=== PATIENT | female | born 1990 | race Caucasian/White ===

== ENCOUNTER 2023-08-17 17:48 | Emergency (ER) | payer OTHER, SELFPAY ==
[2023-08-17] VITALS (15 sets, daily range): BP systolic 112–143; BP diastolic 72–92; PULSE 60–82; RESP 21; TEMP 36.9; O2SAT 97–100; BMI 31.2
--- NOTE | 2023-08-17 18:00 | ED.GENADULT ---
HPI - General Adult General Chief complaint: Abdominal Pain Stated complaint: Persistent Stomach pain Time Seen by Provider: 08/17/23 17:51 History of Present Illness HPI narrative: Persistent right upper quadrant pain since wednesday pain. Worsens when she eats and drinks. Has had 4 bowel movements today . Pt has nausea 33 year old woman presenting to the ER with concern of abdominal pain. Has gotten particularly intense over the last day and half. About 10 days ago noted a rash that appeared on the palmar surface of her hands bilaterally. She has pictures demonstrating cafe colored well-demarcated blotches of varying sizes appearing over palmar surface of fingers and palms. She swears there was nothing that she encounter that would have caused this. This lasted about 3 days. Currently she blames discoloration on her thumbs on marker. And then over the last 10 days began to have escalating abdominal pain. Sharp crampy. No diarrhea. She is just quite gassy. She has tried Tums and pantoprazole. Does have a history of laryngeal reflux she says. Pain is markedly exacerbated when she eats or drinks anything. She has had a number of bowel movements today which were non diarrheal. She is nauseated. Pain she thinks is more in the right upper abdomen. Again pain has been colicky in some way but has been persistent as she gestures across the mid abdomen. She has not had a fever. She does note a history of stomach problems and notes an allergy to lactose and gluten but does not know of any exposures that she may have had recently. No vomiting. She notes her mother having had her gallbladder out as well as Juan's disease. Also that her father had biliary cancer. Related Data Allergies Allergy/AdvReac Type Severity Reaction Status Date / Time No Known Drug Allergies Allergy Verified 08/17/23 17:58 Review of Systems Status of ROS: Reports: 6 or more systems reviewed and unremarkable except as noted in History and below PFSH PFS Social History Smoking Status: Never smoker How often do you have a drink containing alcohol: never How often do you have six or more drinks on one occasion: Never AUDIT-C Alcohol total score: 0 Non-prescribed substance use: denies use Exam Narrative: Exam Narrative: Pleasant. Of good energy. Skin is warm and dry. There is a freckle cafe colored macule but any 7 in in the palm of her right hand between her index and thumb. Nothing else similar to pictures that were shown are noted. Skin is warm and dry otherwise without rash. Lungs are clear. She is a little sore to percussion of the right flank. Heart is in a regular rate and rhythm. Has a mid systolic murmur. Oropharynx with some irregular erythema in a suggestion of a you were 1 mm so blister in the soft palate. She does not have cervical lymphadenopathy. Abdomen seems diffusely full. She is diffusely tender more so though in the epigastrium and right upper quadrant but is negative Weinberg's. Const: Vital Signs, click to edit/add: Vital Signs - 24 hr 08/17/23 17:53 08/17/23 19:30 08/17/23 19:44 Temperature 98.4 F Pulse Rate 62 Pulse Rate [Right Pulse Oximeter] 82 61 Respiratory Rate 21 Blood Pressure Blood Pressure [Ri ght Upper Arm] 143/92 H 120/91 H Pulse Oximetry 98 98 99 Oxygen Delivery Me thod Room Air Room Air 08/17/23 19:45 08/17/23 20:00 08/17/23 20:02 Temperature Pulse Rate 63 63 63 Pulse Rate [Right Pulse Oximeter] Respiratory Rate Blood Pressure 112/72 Blood Pressure [Ri ght Upper Arm] Pulse Oximetry 98 100 99 Oxygen Delivery Me thod 08/17/23 20:15 08/17/23 20:30 08/17/23 20:45 Temperature Pulse Rate 60 73 73 Pulse Rate [Right Pulse Oximeter] Respiratory Rate Blood Pressure Blood Pressure [Ri ght Upper Arm] Pulse Oximetry 98 100 99 Oxygen Delivery Me thod 08/17/23 21:00 08/17/23 21:02 08/17/23 21:03 Temperature Pulse Rate 81 72 73 Pulse Rate [Right Pulse Oximeter] Respiratory Rate Blood Pressure 122/80 Blood Pressure [Ri ght Upper Arm] Pulse Oximetry 97 98 97 Oxygen Delivery Me thod 08/17/23 21:21 08/17/23 21:30 08/17/23 21:45 Temperature Pulse Rate 78 64 65 Pulse Rate [Right Pulse Oximeter] Respiratory Rate Blood Pressure Blood Pressure [Ri ght Upper Arm] Pulse Oximetry 97 99 99 Oxygen Delivery Me thod Documenting provider has reviewed patient's vital signs: yes Course Vital Signs Vital signs: Initial Vital Signs Temperature 98.4 F 08/17/23 17:53 Temperature Source Temporal Artery Scan 08/17/23 17:53 Pulse Rate 82 08/17/23 17:53 Pulse Rhythm Regular 08/17/23 17:53 Pulse Strength 3+ Normal 08/17/23 17:53 Respiratory Rate 21 08/17/23 17:53 Blood Pressure 143/92 H 08/17/23 17:53 Blood Pressure Mean 109 H 08/17/23 17:53 Blood Pressure Position Sitting 08/17/23 17:53 Pulse Oximetry 98 08/17/23 17:53 Oxygen Delivery Method Room Air 08/17/23 17:53 Vital Signs Temperature 98.4 F 08/17/23 17:53 Pulse Rate 82 08/17/23 17:53 Respiratory Rate 21 08/17/23 17:53 Blood Pressure 143/92 H 08/17/23 17:53 Pulse Oximetry 98 08/17/23 17:53 Oxygen Delivery Method Room Air 08/17/23 17:53 Temperature 98.4 F 08/17/23 17:53 Pulse Rate 65 08/17/23 21:45 Respiratory Rate 21 08/17/23 17:53 Blood Pressure 122/80 08/17/23 21:02 Pulse Oximetry 99 08/17/23 21:45 Oxygen Delivery Method Room Air 08/17/23 19:30 Medications Administered Medications: Discontinued Medications Generic Name Dose Route Start Last Admin Trade Name Freq PRN Reason Stop Dose Admin Hydromorphone HCl 0.5 mg 08/17/23 22:16 08/17/23 22:33 Hydromorphone 0.5 Mg/0.5 Ml Inj IVP 08/17/23 22:17 0.5 mg ONCE ONE Administration Hyoscyamine 0.25 mg 08/17/23 20:08 08/17/23 20:35 Hyoscyamine Sulfate 0.125 Mg Tab SUBLINGUAL 08/17/23 20:09 0.25 mg ONCE ONE Administration Sodium Chloride 1,000 mls @ 1,000 mls/hr 08/17/23 18:31 08/17/23 20:05 0.9 % Sodium Chloride 1000 Ml IV 08/17/23 19:30 Infused .Q1H ONE Infusion Ketamine HCl 20 mg/ Sodium 100.2 mls @ 300.6 mls/hr 08/17/23 21:00 08/17/23 21:57 Chloride IVPB 08/17/23 21:01 Infused ONCE ONE Infusion Sodium Chloride 500 mls @ 500 mls/hr 08/17/23 22:16 08/17/23 23:47 0.9 % Sodium Chloride 500 Ml IV 08/17/23 23:15 Infused .Q1H ONE Infusion Ketorolac Tromethamine 30 mg 08/17/23 18:31 08/17/23 19:23 Ketorolac 30 Mg/Ml Inj IVP 08/17/23 18:32 30 mg ONCE ONE Administration Lidocaine HCl 7.5 ml 08/17/23 20:33 08/17/23 20:45 Lidocaine Hcl 4 % Top Soln 50 Ml Bottle PO 08/17/23 20:34 7.5 ml ONCE ONE Administration Lidocaine/Aluminum/Magnesium/Simeth 30 ml 08/17/23 20:33 08/17/23 20:46 Mag Hydrox/Aluminum Hyd/Simeth 30 Ml Oral.Susp PO 08/17/23 20:34 30 ml ONCE ONE Administration Ondansetron HCl 4 mg 08/17/23 18:31 08/17/23 19:22 Ondansetron 2 Mg/Ml Inj IVP 08/17/23 18:32 4 mg ONCE ONE Administration Medical Decision Making MDM Narrative Medical decision making narrative: Diffuse and colicky nature of pain though with the admitted persistence, I think this is more of an IBS flare of some sort/gastritis/enteritis. Certainly could be gallbladder disease though only mildly more tender in this area. Pancreatitis? Story is not good for appendicitis. Mesenteric adenitis perhaps. Has never had upper GI or colonoscopy. Does not appear to be a bowel obstruction or constipation. IV is established. Given Zofran and normal saline and ketorolac. Will need to check labs I think to direct imaging. I think imaging on this case might be somewhat low yield. Will try to focus on symptom relief. Still quite uncomfortable with colicky in stabbing persistent discomfort. Trial of GI cocktail seemed to make things worse. Hyoscyamine also given. Reexamination of the abdomen she still maintains that most pain is in the right upper quadrant and epigastrium but gestures across the mid abdomen side to side centrally. Weight Loss Sales Consultant happens to be here. With her concerns will go ahead and do an ultrasound. Certainly could be gallbladder disease that has yet to be discovered masquerading as irritable bowel. Anticipate though this to be normal. With continued pain I have requested a ketamine infusion; low pain dose. Ultrasound looks to be unremarkable. Strep testing pending --resulted as negative Labs ultimately reassuring. Urinalysis with 2-5 white cells on microscopic Ketamine infusion has helped pain but still present. Feels ?drunk?. We did discuss outpatient management versus further treatment and evaluation here in the emergency department. She still is quite concerned about the degree of pain and where this may have come from. I reiterate my 1st suspicion of diagnosis. Perhaps CT imaging of the abdomen pelvis will also be therapeutic/reassuring. Does report having had a traumatic pneumothorax and lacerated spleen more remotely. Try to finish off pain with half a mg of Dilaudid. Another 500 mL of normal saline. Further improved though discomfort remained. Finally with concerns expressed for more clarity of diagnosis, we did proceed with IV contrasted CT of abdomen and pelvis. Indeed this was essentially negative. I did review these images. Diffuse stool though through the colon. Radiology over-read IMPRESSION: No acute intra-abdominal/pelvic abnormality. Moderate colonic stool burden. Tiny right corpus luteal cyst. See patient discharge plan Lab Data Lab results reviewed: Yes I reviewed the patient's lab results Labs: Lab Results 08/17/23 08/17/23 08/17/23 Range/Units 19:13 19:15 21:00 WBC 6.32 (4.50-11.00) K/uL RBC 4.42 (4.00-5.20) m/uL Hgb 13.1 (12.0-16.0) gm/dL Hct 40.0 (33.0-51.0) % MCV 91 (80-100) fL MCH 30 (26-34) pg MCHC 33 (32-36) gm/dL RDW Coeff of Ciaran 11.9 (11.5-15.5) % Plt Count 268 (140-440) K/uL Neut % (Auto) 58.6 (42.0-72.0) % Lymph % (Auto) 30.7 (20-44) % [place] % (Auto) 6.3 (0.0-11.0) % Eos % (Auto) 4.1 (0.0-7.0) % Baso % (Auto) 0.3 (0.0-3.0) % Neut # (Auto) 3.70 (1.7-7.0) K/uL Lymph # (Auto) 1.94 (0.90-2.90) K/uL [place] # (Auto) 0.40 (0.00-0.90) K/UL Eos # (Auto) 0.26 (0.00-0.50) K/uL Baso # (Auto) 0.02 (0.00-0.30) K/uL Abs Immat Gran (auto) 0.00 (0.00-0.30) K/uL Imm/Tot Granulo (auto) 0.0 % ESR 6 (2-20) mm/hr Sodium 139 (135-149) mmol/L Potassium 3.5 L (3.6-5.1) mmol/L Chloride 104 (96-114) mmol/L Carbon Dioxide 26 (20-32) mmol/L Anion Gap 9 (7-15) mEq/L BUN 14 (5-24) mg/dL Creatinine 0.5 (0.5-1.5) mg/dL Estimated Creat Clear 116.03 Estimated GFR 128 ml/min Glucose 86 (60-115) mg/dL Lactate 0.5 (0.5-1.9) mmol/L Calcium 9.5 (8.4-10.6) mg/dL Magnesium 2.0 (1.5-2.6) mg/dL Total Bilirubin 0.6 (0.1-1.5) mg/dL Direct Bilirubin 0.0 (0.0-0.5) mg/dL AST 30 (12-35) U/L ALT 18 (4-35) U/L Alkaline Phosphatase 67 (40-150) U/L C-Reactive Protein < 0.5 L (0.5-1.0) mg/dL Total Protein 8.0 (6.0-8.3) g/dL Albumin 4.8 (3.3-5.0) g/dL Lipase 60 (23-300) U/L TSH 0.529 (0.270-4.20) uIU/mL Urine Color Yellow (Yellow) Urine Appearance Clear (Clear) Urine pH 7.0 (5.0-8.5) Ur Specific Topping 1.010 (1.000-1.030) Urine Protein Negative (Negative) Urine Glucose (UA) Negative (Negative) Urine Ketones Negative (Negative) Urine Blood Negative (Negative) Urine Nitrite Negative (Negative) Urine Bilirubin Negative (Negative) Urine Urobilinogen 0.2 (0.2-1.0) Ur Leukocyte Esterase Trace A (Negative) Urine RBC 0-2 (0-2) Urine WBC 2-5 (0-5) Ur Squamous Epith Cells Few (None-Few) Urine Bacteria Few A (None) Urine HCG, Qual Negative (Negative) Group A Strep DNA NOT DETECTED (Not Detectd) Lab Acknowledgement 08/17/23 Range/Units 21:08 WBC (4.50-11.00) K/uL RBC (4.00-5.20) m/uL Hgb (12.0-16.0) gm/dL Hct (33.0-51.0) % MCV (80-100) fL MCH (26-34) pg MCHC (32-36) gm/dL RDW Coeff of Ciaran (11.5-15.5) % Plt Count (140-440) K/uL Neut % (Auto) (42.0-72.0) % Lymph % (Auto) (20-44) % [place] % (Auto) (0.0-11.0) % Eos % (Auto) (0.0-7.0) % Baso % (Auto) (0.0-3.0) % Neut # (Auto) (1.7-7.0) K/uL Lymph # (Auto) (0.90-2.90) K/uL [place] # (Auto) (0.00-0.90) K/UL Eos # (Auto) (0.00-0.50) K/uL Baso # (Auto) (0.00-0.30) K/uL Abs Immat Gran (auto) (0.00-0.30) K/uL Imm/Tot Granulo (auto) % ESR (2-20) mm/hr Sodium (135-149) mmol/L Potassium (3.6-5.1) mmol/L Chloride (96-114) mmol/L Carbon Dioxide (20-32) mmol/L Anion Gap (7-15) mEq/L BUN (5-24) mg/dL Creatinine (0.5-1.5) mg/dL Estimated Creat Clear Estimated GFR ml/min Glucose (60-115) mg/dL Lactate (0.5-1.9) mmol/L Calcium (8.4-10.6) mg/dL Magnesium (1.5-2.6) mg/dL Total Bilirubin (0.1-1.5) mg/dL Direct Bilirubin (0.0-0.5) mg/dL AST (12-35) U/L ALT (4-35) U/L Alkaline Phosphatase (40-150) U/L C-Reactive Protein (0.5-1.0) mg/dL Total Protein (6.0-8.3) g/dL Albumin (3.3-5.0) g/dL Lipase (23-300) U/L TSH (0.270-4.20) uIU/mL Urine Color (Yellow) Urine Appearance (Clear) Urine pH (5.0-8.5) Ur Specific Topping (1.000-1.030) Urine Protein (Negative) Urine Glucose (UA) (Negative) Urine Ketones (Negative) Urine Blood (Negative) Urine Nitrite (Negative) Urine Bilirubin (Negative) Urine Urobilinogen (0.2-1.0) Ur Leukocyte Esterase (Negative) Urine RBC (0-2) Urine WBC (0-5) Ur Squamous Epith Cells (None-Few) Urine Bacteria (None) Urine HCG, Qual (Negative) Group A Strep DNA (Not Detectd) Lab Acknowledgement Test Added Discharge Plan Discharge Clinical Impression: Abdominal pain Patient Disposition: Home w/ Parent or Adult Condition: Stable Additional Instructions: Slow advance of diet over the next 24-36 hours. Diluted juices, soup broths, rice, toast, crackers. You seem a little constipated on imaging. Consider taking MiraLax equivalent 2-3 doses a day adjusting to stool consistency and take over the next 2 weeks perhaps. I did review CT again with radiology and they feel that your uterus actually looks quite healthy and normal, as far as we can determine on CT, for a young woman your age. It seemed to me more that your abdominal pains were an extension of possibly undiagnosed irritable bowel. You do have an appointment at the end of the week and I would keep that to discuss further evaluation or pain management plans if necessary. At this time I am not sure how to connect your abdominal pain to the rash you saw on your hands. Zofran if needed from [facility]. Stand Alone Forms: [facility] Info Instructions
[2023-08-17 19:18] LABS: Appearance Urine Clear (Clear); Bilirubin Urine Negative (Negative); Blood Urine Negative (Negative); Color Urine Yellow (Yellow); Glucose Urine Negative (Negative); Ketones Urine Negative (Negative); Leukocyte Esterase Urine Trace (Negative); Nitrite Urine Negative (Negative); Protein Urine Negative (Negative); Urobilinogen Urine 0.2 (0.2-1.0)
[2023-08-17] MEDS: 0.9 % SODIUM CHLORIDE 1000 ml 1,000 ML IV (19:22)
[2023-08-17] MEDS: ONDANSETRON 2 MG/ML inj 4 MG IVP (19:22)
[2023-08-17] MEDS: KETOROLAC 30 MG/ML inj IVP (19:23)
[2023-08-17 19:29] LABS: Lactate* 0.5 mmol/L (0.5-1.9)
[2023-08-17 19:29] LABS: RBC Urine 0-2 (0-2)
[2023-08-17 19:30] LABS: Bacteria Urine Few; Squamous Epithelial Cell Urine Few (None-Few)
[2023-08-17 19:31] LABS: Basophils Absolute Auto 0.02 K/uL (0.00-0.30); Basophils Percent Auto 0.3 % (0.0-3.0); Eosinophils Absolute Auto 0.26 K/uL (0.00-0.50); Eosinophils Percent Auto 4.1 % (0.0-7.0); Hemoglobin* 13.1 gm/dL (12.0-16.0); Lymphocytes Absolute Auto 1.94 K/uL (0.90-2.90); Lymphocytes Percent Auto 30.7 % (20-44); Mean Corpuscular HGB Conc 33 gm/dL (32-36); Mean Corpuscular Hemoglobin 30 pg (26-34); Mean Corpuscular Volume 91 fL (80-100); Monocytes Percent Auto 6.3 % (0.0-11.0); Neutrophils Percent Auto 58.6 % (42.0-72.0); Platelet Count* 268 K/uL (140-440); RDW Coefficient of Variation % 11.9 % (11.5-15.5); Red Blood Count 4.42 m/uL (4.00-5.20); Slide Review Reflex No; White Blood Count* 6.32 K/uL (4.50-11.00)
[2023-08-17 19:51] LABS: Albumin* 4.8 g/dL (3.3-5.0)
[2023-08-17 19:54] LABS: Alanine Aminotransferase* 18 U/L (4-35); Alkaline Phosphatase* 67 U/L (40-150); Aspartate Amino Transferase* 30 U/L (12-35); Bilirubin Total* 0.6 mg/dL (0.1-1.5); Lipase* 60 U/L (23-300)
[2023-08-17 20:08] LABS: Chloride* 104 mmol/L (96-114); Potassium* 3.5 mmol/L (3.6-5.1); Sodium* 139 mmol/L (135-149)
[2023-08-17 20:11] LABS: Creatinine* 0.5 mg/dL (0.5-1.5); Est. Creatinine Clearance* 116.03; Estimated Glomerular Filt Rate 128 ml/min
[2023-08-17 20:12] LABS: Anion Gap 9 mEq/L (7-15); Blood Urea Nitrogen* 14 mg/dL (5-24); Calcium* 9.5 mg/dL (8.4-10.6); Carbon Dioxide* 26 mmol/L (20-32); Glucose* 86 mg/dL (60-115)
[2023-08-17 20:18] LABS: C Reactive Protein* < 0.5 mg/dL (0.5-1.0)
[2023-08-17 20:25] LABS: Thyroid Stimulating Hormone* 0.529 uIU/mL (0.270-4.20)
[2023-08-17] MEDS: HYOSCYAMINE SULFATE 0.125 MG TAB 0.25 MG SUBLINGUAL (20:35)
[2023-08-17] MEDS: lidocaine HCL 4 % TOP SOLN 50 ML BOTTLE 7.5 ML PO (20:45)
[2023-08-17] MEDS: MAG HYDROX/ALUMINUM HYD/SIMETH 30 ML ORAL.SUSP PO (20:46)
--- NOTE | 2023-08-17 20:59 | CRLHL7_ITS ---
For Patients: As a result of the Century Cures Act, medical imaging exams and procedure reports are released immediately into your electronic medical record. You may view this report before your referring provider. If you have questions, please contact your health care provider. INDICATION: Right upper quadrant abdomen pain. TECHNIQUE: Ultrasound abdomen limited. Sonographic images of the right upper quadrant were obtained using gupta-scale and color Doppler images. COMPARISON: None. FINDINGS: Liver: Normal in size and echotexture. No suspicious masses. No intrahepatic biliary dilatation. Portal vein is patent with blood flow toward the liver. Gallbladder: No stones or sludge. Normal wall thickness. No pericholecystic fluid. No sonographic Weinberg`s sign. Common bile duct: 5 mm. Pancreas: Unremarkable. Right kidney: Normal in size. Normal echotexture and cortex. No suspicious masses, stones, or hydronephrosis. Vasculature: Proximal abdominal aorta and IVC are unremarkable. IMPRESSION: Unremarkable right upper quadrant ultrasound. Dictated by Cruz Castro MD @ 08/17/2023 9:56:17 PM (Electronically Signed)
[2023-08-17 21:14] LABS: Ur HCG Qualitative* Negative (Negative)
[2023-08-17] MEDS: KETAMINE HCL 20 MG in 0.9 % SODIUM CHLORIDE 100 ml 100 ML 300.6 MG IVPB (21:35)
[2023-08-17 21:43] LABS: Strep A DNA Probe* NOT DETECTED (Not Detectd)
[2023-08-17 21:48] LABS: Erythrocyte SedimentationRate* 6 mm/hr (2-20)
--- NOTE | 2023-08-17 22:16 | CRLHL7_ITS ---
For Patients: As a result of the Century Cures Act, medical imaging exams and procedure reports are released immediately into your electronic medical record. You may view this report before your referring provider. If you have questions, please contact your health care provider. INDICATION: Severe diffuse abdominal pain. TECHNIQUE: CT abdomen and pelvis acquired with 79 cc Omnipaque 350 IV contrast. COMPARISON: None. FINDINGS: Lower chest: Scattered atelectasis. Liver: Unremarkable. Normal in size and attenuation. No suspicious masses. Gallbladder and bile ducts: Unremarkable. No stones or inflammation. No biliary dilatation. Pancreas: Unremarkable. No mass or inflammation. Spleen: Unremarkable. Normal in size. No masses. Adrenal glands: Unremarkable. No nodules. Kidneys: Unremarkable. No suspicious masses, stones, or hydronephrosis. GI tract: Moderate colonic stool burden. Normal in caliber. No sign of mass or inflammation. Normal appendix. Vasculature: Abdominal aorta is normal in caliber. Mesenteric arteries are patent. Lymph nodes: No lymphadenopathy. Peritoneum/Abdominal Wall: Unremarkable. No sign of mass or infiltration. No free air or significant free fluid. Pelvis: Tiny right corpus luteal cyst. Bones: Unremarkable for age. IMPRESSION: No acute intra-abdominal/pelvic abnormality. Moderate colonic stool burden. Tiny right corpus luteal cyst. Please note that all CT scans at this facility use dose modulation, iterative reconstruction, and/or weight-based dosing when appropriate to reduce radiation dose to as low as reasonably achievable. Dictated by Adolfo Paris MD @ 08/17/2023 11:34:07 PM (Electronically Signed)
[2023-08-17] MEDS: HYDROmorphone 0.5 mg/0.5 ml inj IVP (22:33)
[2023-08-17] MEDS: 0.9 % SODIUM CHLORIDE 500 ML 500 ML IV (22:34)
== END 2023-08-18 00:36 | disposition home or self-care (01) ==
PROVIDERS: Emergency Provider Family Medicine
DX: R10.9 Unspecified abdominal pain (principal)
CPT/HCPCS: 36415; 74177; 76705; 80048; 80076; 81001; 81025; 83605; 83690; 83735; 84443; 85025; 85651; 86140; 87086; 87651; 94761; 96365; 96375; 99284; 99285; A9270; J1170; J1885; J2405; J3490; J7030; J7120; Q9967